=== PATIENT | female | born 1970 | race Caucasian/White ===

== ENCOUNTER → 2019-10-01 11:44 | Outpatient (CLI) | payer OTHER, SELFPAY ==
--- NOTE | ~2019-10-01 | MM_ITS ---
EXAMINATION: MM screening [facility] BI w bailee HISTORY: Screening mammogram TECHNIQUE: Craniocaudal and mediolateral oblique 3-D tomosynthesis images were obtained and synthetic 2-D images were generated. CAD analysis was submitted and interpreted. COMPARISON: 06/20/2018, 06/07/2017, 03/18/2009 BREAST PARENCHYMAL COMPOSITION: The breasts are heterogeneously dense, which may obscure small masses . FINDINGS: There is no evidence of suspicious mass, calcification, or architectural distortion to sugg est malignancy in either breast. There has been no suspicious interval change. IMPRESSION: 1. No mammographic evidence of malignancy. 2. Recommend routine screening mammography in one year. BI-RADS Category 1: Negative Reviewed, dictated and finalized at location A.
== END ==
PROVIDERS: Visit Provider Nurse Practitioner
DX: Z12.31 Encounter for screening mammogram for malignant neoplasm of breast (principal)
CPT/HCPCS: 77063; 77067

== ENCOUNTER 2020-06-20 14:47 | Emergency (ER) | payer OTHER, SELFPAY ==
--- NOTE | ~2020-06-20 | XR_ITS ---
EXAMINATION: XR chest 2V EXAM DATE: 06/20/2020 15:24 INDICATION: Left-sided chest pain. Dizziness. TECHNIQUE: Frontal and lateral projections of the chest obtained and reviewed. There is no prior francesco dy for comparison. FINDINGS: The lungs are clear. There are no pleural effusions. The cardiomediastinal silhouette is within normal limits. There is no pneumothorax suspected. The bones and soft tissues are unremarkab le. IMPRESSION: Normal chest x-ray exam. Reviewed, dictated and finalized at location A. IMPRESSION: Normal chest x-ray exam.
--- NOTE | 2020-06-20 14:53 | ED.CHESTPAIN ---
HPI - Chest Pain General Chief Complaint: Chest Pain Stated Complaint: chest pain Time Seen by Provider: 06/20/20 14:53 History of Present Illness HPI narrative: Intermittent left sided chest pain since this morning. Located under the left breast. No radiation. Associated with light headedness. No SOB, nausea, fever, cough. Related Data Home Medications Medication Instructions Recorded Confirmed ergocalciferol (vitamin D2) 06/20/20 levothyroxine 06/20/20 Allergies Allergy/AdvReac Type Severity Reaction Status Date / Time No Known Allergies Allergy Verified 06/20/20 15:05 Review of Systems Review of Systems: All systems reviewed & are unremarkable except as noted in HPI and below Constitutional: Constitutional: Reports no additional constitutional complaints Eyes: Eyes: Reports no additional eye complaints ENT: Reports system reviewed and no additional complaints, except as documented Cardiovascular: Cardiovascular: Reports chest pain Respiratory: Respiratory: Denies dyspnea Gastrointestinal: Gastrointestinal: Denies abdominal pain and Denies nausea Genitourinary: Genitourinary: Reports no additional female genitourinary complaints Musculoskeletal: Musculoskeletal: Reports no additional musculoskeletal complaints Neurologic: Reports system reviewed and no additional complaints, except as documented [facility] Past Medical History Medical History (Updated 06/20/20 @ 18:43 by Delgado Sharif MD) Hypothyroidism Social History Social History (Updated 06/20/20 @ 15:22 by Delgado Sharif MD) Smoking status: Never smoker Exam Const: General: healthy appearing, no acute distress and alert Orientation/consciousness: patient oriented x3 HENMT: Head: normal to inspection Neck: Neck: normal visual inspection Resp: Effort & Inspection: normal respiratory effort Auscultation: clear to auscultation bilaterally, no rales, no rhonchi and no wheezes Cardio: Jugular venous distension: no JVD Rate: regular rate Rhythm: regular rhythm Heart sounds: no murmurs GI: Inspection: non-distended GI Palp: Yes Soft to palpation and No Tenderness to palpation present (GI) Skin: General skin exam: normal color Neuro: General: patient oriented x3, moves all extremities, no focal motor deficits and CN's II-XI intact bilaterally Speech: normal speech Extrem: General: no edema Psych: Appearance: well kempt Affect: Anxious affect present Course Vital Signs Vital signs: Vital Signs Temperature 36.4 C L 06/20/20 14:58 Pulse Rate 80 06/20/20 14:58 Respiratory Rate 17 06/20/20 14:58 Blood Pressure 143/77 H 06/20/20 14:58 Pulse Oximetry 100 06/20/20 14:58 Temperature 36.6 C 06/20/20 16:54 Pulse Rate 80 06/20/20 16:54 Respiratory Rate 15 06/20/20 16:54 Blood Pressure 115/64 06/20/20 16:54 Pulse Oximetry 100 06/20/20 16:54 MDM - Chest Pain MDM Narrative Medical decision making narrative: She has sharp well localized pain that would be very atyical for anginal pain. She does have some minimal depressions on EKG. Troponin is negative x 2. Heart score is 3. Differential Diagnosis Differential diagnosis: Likely unstable angina pectoris and atypical chest pain Medical Records Data Attestation: I reviewed the patient's medical records. Lab Data Attestation: I reviewed the patient's lab results. Result diagrams: 06/20/20 15:17 06/20/20 15:17 Labs: Lab Results 06/20/20 06/20/20 06/20/20 Range/Units 15:17 15:17 15:17 WBC 5.2 (4.5-10.0) K/mm3 RBC 4.18 L (4.2-5.4) M/mm3 Hgb 12.6 (12.0-15.0) g/dL Hct 36.2 L (37.0-47.0) % MCV 86.6 (80-100) fl MCH 30.1 (26-34) pg MCHC 34.8 (32-36) g/dl RDW 12.4 (11.5-14.5) % Plt Count 162 (150-375) k/mm3 MPV 10.9 H (7.4-10.4) fl Immature Gran % (Auto) 0.2 (0-0.5) % Neut % (Auto) 78.8 H (45.5-73.1) % Lymph % (Auto) 14.8 L (18.3-44.2) %
--- NOTE | 2020-06-20 14:54 | ECG_ITS ---
Measurements Intervals Martin Rate: 86 P: 78 OH: 147 QRS: -20 QRSD: 102 T: 60 QT: 379 QTc: 454 Interpretive Statements SINUS RHYTHM INCOMPLETE RIGHT BUNDLE BRANCH BLOCK DELAYED PRECORDIAL R/S TRANSITION BORDERLINE ST ABNORMALITY- LATERAL LEADS BORDERLINE ECG Electronically Signed On 06-20-2020 15:20:37 CDT by Flaco Basilio D.O.
[2020-06-20 14:58] VITALS: BP 143/77; PULSE 80; RESP 17; TEMP 36.4; O2SAT 100
[2020-06-20 15:14] VITALS: PULSE 77
[2020-06-20 15:27] LABS: Basophils Percent Auto 0.4 % (0.2-1.2); Eosinophils Percent Auto 0.2 % (0-4.4); Hematocrit 36.2 % (37.0-47.0); Hemoglobin 12.6 g/dL (12.0-15.0); Immature Granulocyte Absolute 0.01 K/mm3 (0.00-0.031); Immature Granulocyte Percent A 0.2 % (0-0.5); Lymphocytes Absolute Auto 0.76 K/mm3 (0.9-3.2); Lymphocytes Percent Auto 14.8 % (18.3-44.2); Mean Corpuscular HGB Conc 34.8 g/dl (32-36); Mean Corpuscular Hemoglobin 30.1 pg (26-34); Mean Corpuscular Volume 86.6 fl (80-100); Mean Platelet Volume 10.9 fl (7.4-10.4); Monocytes Absolute Auto 0.3 K/mm3 (0.1-0.6); Monocytes Percent Auto 5.6 % (2.6-8.5); Neutrophils Absolute Auto 4.1 K/mm3 (1.3-6.7); Neutrophils Percent Auto 78.8 % (45.5-73.1); Platelet Count Result 162 k/mm3 (150-375); Red Blood Count 4.18 M/mm3 (4.2-5.4); Red Cell Distribution Width 12.4 % (11.5-14.5); White Blood Count 5.2 K/mm3 (4.5-10.0)
[2020-06-20 15:33] LABS: INR 0.9; Prothrombin Time 12.8 Seconds (11.1-14.7)
[2020-06-20 15:34] LABS: Partial Thromboplastin Time 35.9 SECONDS (22.3-36.8)
[2020-06-20 15:42] LABS: Anion Gap 5 mmol/L (8-16); Blood Urea Nitrogen 15 mg/dL (7-17); Calcium 9.7 mg/dL (8.4-10.2); Carbon Dioxide 30 mmol/L (22-30); Chloride 104 mmol/L (98-107); Estimated CRCL calculation 59 ml/min; Estimated Glomerular Filt Rate > 60; Glucose 123 mg/dL (65-105); Potassium 3.7 mmol/L (3.4-5.0); Sodium 139 mmol/L (137-145)
[2020-06-20 15:54] LABS: Troponin I < 0.012 ng/mL (0.000-0.034)
[2020-06-20] MEDS: ASPIRIN 81 MG CHEWABLE TABLET 324 MG PO (16:51)
[2020-06-20] MEDS: SODIUM CHLORIDE 0.9% IV 1,000 ML 999 ML IV CONT (16:51)
[2020-06-20 16:54] VITALS: BP 115/64; PULSE 80; RESP 15; TEMP 36.6; O2SAT 100
[2020-06-20 17:30] VITALS: BP 113/86; PULSE 88; RESP 15; O2SAT 100
[2020-06-20 18:31] LABS: Troponin I < 0.012 ng/mL (0.000-0.034)
[2020-06-20 18:38] VITALS: BP 113/72; BP 117/63; BP 121/86; PULSE 84; PULSE 85; PULSE 87; PULSE 89; RESP 18; TEMP 36.4; O2SAT 100
[2020-06-20] MEDS: MECLIZINE HCL 25 MG TABLET PO (19:26)
== END 2020-06-20 19:33 | disposition home or self-care (01) ==
PROVIDERS: Emergency Provider Emergency Medicine; PCP Family Medicine Adolescent Medicine
DX: R07.89 Other chest pain (principal); E03.9 Hypothyroidism, unspecified
CPT/HCPCS: 36415; 71046; 80048; 84484; 85025; 85610; 85730; 93005; 96360; 99284; A9270; J7030

== ENCOUNTER → 2020-11-19 12:29 | Outpatient (CLI) | payer OTHER, SELFPAY ==
--- NOTE | ~2020-11-19 | MM_ITS ---
EXAMINATION: MM screening [facility] BI w bailee HISTORY: Screening mammogram TECHNIQUE: Craniocaudal and mediolateral oblique 3-D tomosynthesis images were obtained and synthetic 2-D images were generated. CAD analysis was submitted and interpreted. COMPARISON: 10/01/2019, 06/20/2018, 06/07/2017 BREAST PARENCHYMAL COMPOSITION: The breasts are heterogeneously dense, which may obscure small masses . FINDINGS: There is no evidence of suspicious mass, calcification, or architectural distortion to sugg est malignancy in either breast. There has been no suspicious interval change. IMPRESSION: 1. No mammographic evidence of malignancy. 2. Recommend routine screening mammography in one year. BI-RADS Category 1: Negative Reviewed, dictated and finalized at location A.
--- NOTE | ~2020-11-19 | DEXA_ITS ---
Bone Density Report Name: Rita Marie Age: 50 Sex: Female Ethnicity: White Date of : 1970 Indication: postmenopausal; screening for osteoporosis; Referring Provider: Deanna, Vika Study: Bone densitometry was performed. Exam Date: November 19, 2020 Accession number: [id number] Bone Density: Region BMD T-score Z-score Classification AP Spine (L1-L4) 0.835 -1.9 -1.1 Osteopenia Femoral Neck (Left) 0.655 -1.7 -0.9 Osteopenia Total Hip (Left) 0.799 -1.2 -0.6 Osteopenia Femoral Neck (Right) 0.602 -2.2 -1.4 Osteopenia Total Hip (Right) 0.771 -1.4 -0.9 Osteopenia Total Hip Mean 0.785 -1.3 -0.8 Osteopenia World Health Organization criteria for BMD impression classify patients as: Normal (T-score at or above -1.0), Osteopenia (T-score between -1.0 and -2.5), or Osteoporosis (T-score at or below -2.5). 10-year Fracture Risk(1): Major Osteoporotic Fracture 5.5% Hip Fracture 0.9% Reported Risk Factors: [place] (), Neck BMD=0.602, BMI=18.1 (1) FRAX(R) Version 3.08. Fracture probability calculated for an untreated patient. Fracture probability may be lower if the patient has received treatment. Clinical Information Provided by Patient: Has used the following medications: Vitamin D, Levothyroxine Patient maximum height was 64.2 Menopause Age: 46 Does not regularly consume dairy products Onset of menses at age 12 Number of children 2 Impression: The patient has low bone mass, based on the Right Femoral Neck T-score. The patient has an estimated ten-year risk of hip fracture of 0.9% and an estimated ten-year risk of major fracture of 5.5%, based on the WHO FRAX algorithm. Discussion: BONE DENSITY IS LOW AT ONE OR MORE SKELETAL SITES. This patient's lowest T-score is low at one or more skeletal sites. It meets the World Health Organization's (WHO) criteria for ?low bone mass? (T-score between -1.0 and -2.5). The patient's 10-year risk of fracture as calculated by FRAX is less than the threshold where pharmacological therapy is recommended by the National Osteoporosis Foundation (NOF). However, all treatment decisions require clinical judgment and consideration of individual patient factors, including patient preferences, comorbidities, previous drug use, risk factors not captured in the FRAX model (e.g., frailty, falls, vitamin D deficiency, increased bone turnover, interval significant decline in bone density) and possible under or overestimation of fracture risk by FRAX. The patient should follow a healthful lifestyle (good nutrition with adequate calcium and vitamin D, and appropriate weight-bearing exercise). Follow-Up: Consider repeating this study in 2 to 3 years to reassess this patient's status, or sooner if there is some new clinical indication. Reported by: [facility] on 11/19/2020 1:1
== END ==
PROVIDERS: PCP Family Medicine Adolescent Medicine; Visit Provider Nurse Practitioner
DX: Z12.31 Encounter for screening mammogram for malignant neoplasm of breast (principal); Z13.820 Encounter for screening for osteoporosis; M85.88 Other specified disorders of bone density and structure, other site; M85.852 Other specified disorders of bone density and structure, left thigh; M85.851 Other specified disorders of bone density and structure, right thigh
CPT/HCPCS: 77063; 77067; 77080

== ENCOUNTER → 2021-11-22 11:00 | Outpatient (CLI) | payer OTHER, SELFPAY ==
--- NOTE | ~2021-11-22 | MM_ITS ---
EXAMINATION: MM screening [facility] BI w bailee HISTORY: Screening mammogram TECHNIQUE: Craniocaudal and mediolateral oblique 3-D tomosynthesis images were obtained and synthetic 2-D images were generated. CAD analysis was submitted and interpreted. COMPARISON: 11/19/2020, 10/01/2019, 06/20/2018 BREAST PARENCHYMAL COMPOSITION: The breasts are heterogeneously dense, which may obscure small masses . FINDINGS: There is no suspicious mass, calcification, or architectural distortion to suggest malignan cy in either breast. There has been no suspicious interval change. IMPRESSION: 1. No mammographic evidence of malignancy. 2. Recommend routine screening mammography in one year. BI-RADS Category 1: Negative Reviewed, dictated and finalized at location A.
== END ==
PROVIDERS: PCP Family Medicine Adolescent Medicine; Visit Provider Nurse Practitioner
DX: Z12.31 Encounter for screening mammogram for malignant neoplasm of breast (principal)
CPT/HCPCS: 77063; 77067

== ENCOUNTER 2022-08-02 00:55 | Day surgery (SDC) | payer OTHER, SELFPAY ==
[2022-07-20 13:46] VITALS: BMI 25.0
[2022-08-02 07:42] VITALS: BP 107/53; PULSE 83; RESP 18; TEMP 36.3; O2SAT 100
[2022-08-02] MEDS: LACTATED RINGERS 1,000 ML 150 ML IV CONT (07:51)
--- NOTE | 2022-08-02 08:45 | PM.HPGS ---
History of Present Illness History of Present Illness Consent: Risks, benefits, and alternatives have been discussed and questions answered. Patient agrees to proceed with procedure. Chief complaint: neoplasm screening Narrative: Rita Marie is a 51 year old female Presents for screening colonoscopy. Patient's current weight appetite bowel movements are normal. She denies abdominal pain. Patient has had no bleeding. Family history is noncontributory. Review of Systems Review of Systems: Review of systems noncontributory. [facility] Past Medical History Medical History Arnold-Chiari malformation, type I Hypothyroidism Osteopenia of multiple sites Family History Family History Grandparent Cerebrovascular accident Sibling Multiple sclerosis Social History Social History Smoking status: Former smoker Tobacco type: cigarettes Second hand tobacco smoke exposure: No Alcohol intake: never Substance use: never Substance use type: does not use Living arrangements: with family Occupation/Education: other Gender identity (if verbalized by the patient): Female Sexual Orientation (if Verbalized by the Patient): Straight or Heterosexual Spiritual care concerns: No Agree to blood products: Yes Meds Home Medications and Allergies Home Medications Medication Instructions Recorded Confirmed Type cholecalciferol (vitamin D3) 25 25 mcg PO DAILY 06/07/21 08/02/22 History mcg (1,000 unit) capsule levothyroxine 75 mcg tablet 75 mcg PO DAILY #90 tabs 06/20/22 08/02/22 Rx Allergies Allergy/AdvReac Type Severity Reaction Status Date / Time No Known Allergies Allergy Verified 08/02/22 07:40 Vital Signs Vital Signs - 24 hr 08/02/22 07:42 Temperature 97.3 F L Pulse Rate 83 Respiratory Rate 18 Blood Pressure 107/53 L Pulse Oximetry 100 Oxygen Delivery Room Air Exam Narrative: Physical exam reveals patient to be alert. Vital signs stable. HEENT exam is unremarkable. Patient is anicteric. Lungs are clear to auscultation and percussion. Heart is without murmur or extra sounds. Abdomen bowel sounds are present soft nontender with no hepatosplenomegaly. Digital external rectal exam is normal. Assessment and Plan Assessment and plan (1) Encounter for screening colonoscopy: Code(s): Z12.11 - Encounter for screening for malignant neoplasm of colon Status: Acute Assessment and Plan: Patient presents today for screening colonoscopy. She appears to be at average risk for colon polyps. Further recommendations may be given after endoscopy.
--- NOTE | 2022-08-02 08:58 | WPDANESEPPF ---
Anes - Initial Pre Proc Eval Procedure: Operation Date: 08/02/22 09:15 Proposed Procedures p Screening Colonoscopy - Lonnie Miranda MD Date/Time: 08/02/22 08:58 Surgeon: Lonnie Miranda MD Pre Op Diagnosis: neoplasm screening Patient Data Age: 51 Gender: F Height: 1.6 m Weight: 47 kg Last Vital Signs Temp 97.3 F L 08/02/22 07:42 Pulse 83 08/02/22 07:42 Resp 18 08/02/22 07:42 BP 107/53 L 08/02/22 07:42 Pulse Ox 100 08/02/22 07:42 O2 Del Method Room Air 08/02/22 07:42 Allergies Allergy/AdvReac Type Severity Reaction Status Date / Time No Known Allergies Allergy Verified 08/02/22 07:40 Home Medications Medication Instructions Recorded Confirmed Type cholecalciferol (vitamin D3) 25 25 mcg PO DAILY 06/07/21 08/02/22 History mcg (1,000 unit) capsule levothyroxine 75 mcg tablet 75 mcg PO DAILY #90 tabs 06/20/22 08/02/22 Rx Patient hx anesthesia problems: none Family hx anesthesia problems: none Results Review: All pre-operative results and documents have been reviewed as part of the pre-operative evaluation. [facility] Past Medical History Medical History Arnold-Chiari malformation, type I Hypothyroidism Osteopenia of multiple sites Family History Family History Grandparent Cerebrovascular accident Sibling Multiple sclerosis Social History Social History Smoking status: Former smoker Tobacco type: cigarettes Second hand tobacco smoke exposure: No Alcohol intake: never Substance use: never Substance use type: does not use Living arrangements: with family Occupation/Education: other Gender identity (if verbalized by the patient): Female Sexual Orientation (if Verbalized by the Patient): Straight or Heterosexual Spiritual care concerns: No Agree to blood products: Yes Anes - Eval Final PreProcedure Day of Procedure 08/02/22 08:58 Patient weight: normal Heart: regular rate and rhythm Lungs: clear to auscultation Airway: Mallampati scale class II Neurological: alert and oriented Last oral intake: >/= 8 hours ASA classification: II Emergent: no Anesthetic plan: proceed Anesthesia type and monitoring: general GIVS and standard monitoring Results Review: All pre-operative results and documents have been reviewed as part of the pre-operative evaluation. Informed Consent: The patient's anesthetic plan and its attendant risks and benefits were discussed with the patient/family/POA. Questions were solicited and answers provided to the satisfaction of the patient/family/POA.
[2022-08-02] MEDS: SIMETHICONE ORAL SUSPENSION 20 MG/0.3 ML 30 ML BOTTLE 0.6 ML IRRIGATION (09:26)
[2022-08-02 09:34] VITALS: BP 112/54; PULSE 95; RESP 18; O2SAT 99
[2022-08-02 09:44] VITALS: BP 109/55; PULSE 91; RESP 21; O2SAT 100
[2022-08-02 09:54] VITALS: BP 100/57; PULSE 84; RESP 16; O2SAT 100
== END 2022-08-02 10:07 | disposition home or self-care (01) ==
PROVIDERS: PCP Family Medicine Adolescent Medicine; Visit Provider Internal Medicine Gastroenterology
PROC: 0DJD8ZZ Inspection of Lower Intestinal Tract, Via Natural or Artificial Opening Endoscopic (ICD-10-PCS; CPT 45378; principal; 2022-08-02 09:15)
DX: Z12.11 Encounter for screening for malignant neoplasm of colon (principal); K64.8 Other hemorrhoids; E03.9 Hypothyroidism, unspecified; G93.5 Compression of brain; M85.89 Other specified disorders of bone density and structure, multiple sites; Z87.891 Personal history of nicotine dependence
CPT/HCPCS: 45378; J2704; J7120

== ENCOUNTER → 2022-11-23 10:23 | Outpatient (CLI) | payer OTHER, SELFPAY ==
--- NOTE | ~2022-11-23 | DEXA_ITS ---
Bone Density Report Name: JU ZAVALA Age: 52 Sex: Female Ethnicity: White Date of : 1970 Indication: osteopenia; postmenopausal Referring Provider: Deanna, Vika Study: Bone densitometry was performed. Exam Date: November 23, 2022 Accession number: [id number] Bone Density: Region BMD T-score Z-score Classification AP Spine (L1-L4) 0.800 -2.2 -1.2 Osteopenia Femoral Neck (Left) 0.649 -1.8 -0.8 Osteopenia Total Hip (Left) 0.790 -1.2 -0.6 Osteopenia Femoral Neck (Right) 0.592 -2.3 -1.3 Osteopenia Total Hip (Right) 0.753 -1.5 -0.9 Osteopenia Total Hip Mean 0.772 -1.4 -0.8 Osteopenia World Health Organization criteria for BMD impression classify patients as: Normal (T-score at or above -1.0), Osteopenia (T-score between -1.0 and -2.5), or Osteoporosis (T-score at or below -2.5). 10-year Fracture Risk(1): Major Osteoporotic Fracture 6.6% Hip Fracture 1.1% Reported Risk Factors: [place] (), Neck BMD=0.592, BMI=17.7 (1) FRAX(R) Version 3.08. Fracture probability calculated for an untreated patient. Fracture probability may be lower if the patient has received treatment. Previous Exams: Region Exam Age BMD T-score BMD Change BMD Change Date g/cm2 vs Baseline vs Previous AP Spine(L1-L4) 11/23/2022 52 0.800 -2.2 -0.035* -0.035* 11/19/2020 50 0.835 -1.9 Total Hip(Left) 11/23/2022 52 0.790 -1.2 -0.009 -0.009 11/19/2020 50 0.799 -1.2 Total Hip(Right) 11/23/2022 52 0.753 -1.5 -0.018 -0.018 11/19/2020 50 0.771 -1.4 *Denotes significance at 95% confidence level, LSC for AP Spine = 0.022 g/cm2, LSC for Total Hip = 0.027 g/cm2 Clinical Information Provided by Patient: Patient maximum height was 64.2 Menopause Age: 46 Does not regularly consume dairy products Onset of menses at age 12 Number of children 2 Impression: The patient has low bone mass, based on the Right Femoral Neck T-score. The patient has an estimated ten-year risk of hip fracture of 1.1% and an estimated ten-year risk of major fracture of 6.6%, based on the WHO FRAX algorithm. The BMD for the AP Spine(L1-L4) decreased, changing by -0.035 since the last DXA exam. Discussion: BONE DENSITY IS LOW AT ONE OR MORE SKELETAL SITES. This patient's lowest T-score is low at one or more skeletal sites. It meets the World Health Organization's (WHO) criteria for ?low bone mass? (T-score between -1.0 and
--- NOTE | ~2022-11-23 | MM_ITS ---
EXAMINATION: MM screening [facility] BI w bailee HISTORY: Screening mammogram TECHNIQUE: Craniocaudal and mediolateral oblique 3-D tomosynthesis images were obtained and synthetic 2-D images were generated. CAD analysis was submitted and interpreted. COMPARISON: 11/22/2021, 11/19/2020, 10/01/2019 BREAST PARENCHYMAL COMPOSITION: The breasts are heterogeneously dense, which may obscure small masses . FINDINGS: No suspicious mass, calcification, or architectural distortion are identified in either viral ast to suggest malignancy. There has been no suspicious interval change. IMPRESSION: 1. No mammographic evidence of malignancy. 2. Recommend routine screening mammography in one year. BI-RADS Category 1: Negative Reviewed, dictated and finalized at location A.
== END ==
PROVIDERS: PCP Family Medicine Adolescent Medicine; Visit Provider Nurse Practitioner
DX: Z12.31 Encounter for screening mammogram for malignant neoplasm of breast (principal); M85.88 Other specified disorders of bone density and structure, other site; M85.852 Other specified disorders of bone density and structure, left thigh; M85.851 Other specified disorders of bone density and structure, right thigh
CPT/HCPCS: 77063; 77067; 77080

== ENCOUNTER 2023-07-13 10:20 | Outpatient (CLI) | payer OTHER, SELFPAY ==
--- NOTE | ~2023-07-13 | MR_ITS ---
MRI of the brain Clinical History: Headache Technique: Axial and sagittal T1-weighted images were acquired. These were followed by axial T2-weigh jared, diffusion weighted, gradient, and FLAIR images. Findings: No abnormal signal seen in the brain parenchyma. No acute infarct, intracranial hemorrhage, or mass lesion identified. Ventricles and subarachnoid spaces are unremarkable. Orbits are unremarkable. Paranasal sinuses and m astoid air cells are clear. Major intracranial flow voids are intact. Sagittal midline structures are intact. IMPRESSION: Unremarkable exam. Reviewed, dictated and finalized at location M. IMPRESSION: Unremarkable exam.
== END 2023-07-13 10:21 ==
PROVIDERS: PCP Family Medicine Adolescent Medicine; Visit Provider Family Medicine Adolescent Medicine
DX: R42 Dizziness and giddiness (principal); R51.9 Headache, unspecified
CPT/HCPCS: 70551

== ENCOUNTER 2023-11-29 10:16 | Outpatient (CLI) | payer OTHER, SELFPAY ==
--- NOTE | ~2023-11-29 | MM_ITS ---
EXAMINATION: MM screening [facility] BI w bailee HISTORY: Screening TECHNIQUE: Craniocaudal and mediolateral oblique 3-D tomosynthesis images were obtained and synthetic 2-D images were generated. CAD analysis was submitted and interpreted. COMPARISON: Comparison to multiple prior studies sequentially, with oldest reviewed study dated 06/07. BREAST PARENCHYMAL COMPOSITION: Dense: The breasts are heterogeneously dense, which may obscure small masses FINDINGS: There is no evidence of suspicious mass, calcification, or architectural distortion to sugg est malignancy in either breast. There has been no suspicious interval change. IMPRESSION: 1. No mammographic evidence of malignancy. 2. Recommend routine screening mammography in one year. BI-RADS Category 1: Negative Reviewed, dictated and finalized at location B.
== END 2023-11-29 10:17 | disposition home or self-care (01) ==
LOC: MICIMG 10:18
PROVIDERS: PCP Family Medicine Adolescent Medicine; Visit Provider Nurse Practitioner
DX: Z12.31 Encounter for screening mammogram for malignant neoplasm of breast (principal)
CPT/HCPCS: 77063; 77067

== ENCOUNTER 2024-03-18 09:59 | Emergency (ER) | payer OTHER, SELFPAY ==
--- NOTE | ~2024-03-18 | CT_ITS ---
EXAMINATION: CTA brain carotid DATE: 03/18/2024 11:04 INDICATION: Migraine headache. TECHNIQUE: Computed tomographic angiography (CTA) of the head was performed without and with 100 mL O mnipaque-350 intravenous contrast. CTA of the neck was performed with intravenous contrast. Automated exposure control and iterative reconstruction technique were employed. The dose-length product was 1 443.42 mGy-cm. Maximum intensity projection and volume rendered 3D-reconstructions were created by elisabet waddell technologist on a separate workstation. COMPARISON: CTA 07/17/2016, brain MRI 07/13/2023 FINDINGS: HEAD CTA: The cerebellar tonsils extend 12 mm inferior to foramen magnum, consistent with Chiari I mi ld formation. There is no intracranial hemorrhage, acute infarction, or abnormal intracranial mass le lashaun. The ventricles are normal in size. The paranasal sinuses are clear. The mastoid air cells are n ormal. The orbits are normal. Left vertebral artery is dominant. There is no significant stenosis of basilar artery or the posterior cerebral arteries. There is no significant stenosis of the intracrani al internal carotid arteries or anterior or middle cerebral arteries. Anterior communicating artery i s normal. The posterior communicating arteries are normal. There is no aneurysm. NECK CTA: There is mild scarring at the lung apices. There are no pathologically enlarged lymph nodes . There is no significant stenosis of the vertebral arteries. There is no visible plaque in the proxi mal internal carotid arteries. There is 0% stenosis of the proximal right internal carotid artery rel ative to normal distal artery lumen diameter (NASCET criteria). There is 0% stenosis of the proximal left internal carotid artery relative to normal distal artery lumen diameter. There is mild cervical spondylosis. IMPRESSION: 1. Chiari I malformation. 2. No aneurysm or significant intracranial arterial stenosis. 3. 0% stenosis of the proximal internal carotid arteries relative to normal distal artery lumen diame ters (NASCET criteria). Reviewed, dictated and finalized at location A. GREASER IMPRESSION: 1. Chiari I malformation. 2. No aneurysm or significant intracranial arterial stenosis. 3. 0% stenosis of the proximal internal carotid arteries relative to normal dis juarez artery lumen diameters (NASCET criteria).
[2024-03-18 10:03] VITALS: BP 128/78; PULSE 100; RESP 16; TEMP 36.5; O2SAT 100
--- NOTE | 2024-03-18 10:26 | ED.HA ---
HPI - Headache General Chief Complaint: Headache Stated Complaint: migraine Time Seen by Provider: 03/18/24 10:07 History of Present Illness HPI Narrative: 53-year-old female with a past medical history significant for intractable migraines, versus tibia enteritis, vertigo. Patient presents to the emergency room with a chief complaint of a migraine headache and vertiginous symptoms that are persistent despite her therapies at home including sumatriptan and Nurtec. She sees an outpatient neurologist and a neurosurgeon for her previous care M1 malformation. She has been on multiple medications for her migraines including amitriptyline, gabapentin, metoprolol and now including sumatriptan Nurtec which are not causing any relief. She states doing that causes relief is traction during PT therapy for her Chiari which alleviate her headaches. She has tried contacting her neurosurgeon for evaluation and potential interventions but has not made those appointments yet. She denies any vision changes, nausea, vomiting, chest pain, difficulty breathing. Was otherwise in her normal state of health. Headache ongoing for 2 days now and refractory to her current therapies. Patient sees Dr. Diaz for Neurology. Related Data Home Medications ?Medication ?Instructions ?Recorded ?Confirmed ?Last Taken ?Type vitamin B12 1,000 mcg-folic acid tablet sublingual 07/04/23 02/13/24 Unknown History 400 mcg sublingual tablet magnesium chelate, mal, threon mg PO 02/13/24 02/13/24 Unknown History 66.7 mg capsule magnesium gluconate 27 mg 27 mg PO ONCE 02/13/24 02/13/24 Unknown History magnesium (500 mg) tablet zinc acetate 25 mg (zinc) capsule 25 mg PO DAILY 02/13/24 02/13/24 Unknown History Allergies Allergy/AdvReac Type Severity Reaction Status Date / Time No Known Allergies Allergy Verified 03/18/24 10:08 Review of Systems Review of Systems: As reviewed above in HPI PMFSH Past Medical History Medical History Osteopenia of multiple sites Arnold-Chiari malformation, type I Hypothyroidism Family History Family History Grandparent Cerebrovascular accident Sibling Multiple sclerosis Father Cancer Grandparent Cancer Grandparent Cancer Social History Social History Smoking status: Former smoker Tobacco type: cigarettes Second hand tobacco smoke exposure: No Alcohol intake: never Substance use: never Substance use type: does not use Do You Feel Safe in your Home?: Yes Lack of Transportation: No Lack of Food: Never True Current Housing: I Have Housing Concerned About Future Housing: No Difficulty Paying Gas/Electric Bills: No Difficulty Paying for Meds: No Currently Unemployed: No Education: High School Diploma/GED Difficulty w/ Childcare or Family Care: No Living arrangements: with family Occupation/Education: other Gender identity (if verbalized by the patient): Female Sexual Orientation (if Verbalized by the Patient): Straight or Heterosexual Spiritual care concerns: No Agree to blood products: Yes Exam Narrative: GENERAL: [Well-appearing, well-nourished, and in no acute distress.] HEAD: [Normocephalic, atraumatic.] EYES: [PERRLA and EOMI.] ENT: Nares clear, no rhinorrhea or epistaxis. Mucous membranes moist. NECK: Supple. CHEST: [Clear to auscultation. No respiratory distress.] HEART: [Regular rate and rhythm]. No murmur heard. [Normal peripheral pulses.] ABDOMEN: [Soft, nondistended], [nontender], [No rigidity or guarding] EXTREMITIES: Normal range of motion. [No edema.] SKIN: Warm, dry, no rash. NEURO: [No focal deficits]. Alert and oriented [x3.] PSYCH: [Normal mood and affect.] Course Vital Signs Vital signs: Vital Signs Temperature 36.5 C 03/18/24 10:03 Pulse Rate 100 03/18/24 10:03 Respiratory Rate 16 03/18/24 10:03 Blood Pressure 128/78 03/18/24 10:03 Pulse Oximetry 100 03/18/24 10:03 Oxygen Delivery Room Air 03/18/24 10:03 Temperature 36.7 C 03/18/24 13:01 Pulse Rate 99 03/18/24 13:01 Respiratory Rate 20 03/18/24 13:01 Blood Pressure 149/68 H 03/18/24 13:01 Pulse Oximetry 99 03/18/24 13:01 Oxygen Delivery Room Air 03/18/24 10:03 MDM - Headache MDM Narrative Medical decision making narrative: 53-year-old female presenting for persistent migraine in vertiginous symptoms. She usually has relief of her migraine headaches with sumatriptan or Nurtec but presently having persistent symptoms despite her medications. No nausea vomiting, no vision changes, no neurological deficits clinically. Normal reassuring vital signs without any abnormalities such as hypertension, tachycardia, fever, hypoxia. She otherwise is well appearing not any acute distress. She states she has had previous MRI imaging for her Chiari but not been able follow-up with her neurosurgeon as her Chiari was enlarging over the past scans. Present concern based on patient's exam and persistent migraine headache and vertiginous symptoms despite usual therapies is that she could be having vertebral basilar insufficiency or central cause to her headache and vertigo. CT angiography was ordered this time and into laboratory studies such as CBC, CMP. She was treated with a migraine cocktail including diphenhydramine, Decadron, Compazine, Benadryl, normal saline bolus. Magnesium also given and she was re-evaluated frequently. Workup shows no leukocytosis or anemia. Normal reassuring electrolytes, unremarkable renal and hepatic function panel. CT angiography shows no stenosis, aneurysms or any occluded vessels. Care malformation is again redemonstrated which patient is well aware of. Patient was re-evaluated had complete symptomatic resolution of her headache. At this time she is stable for discharge home with regular primary care provider follow-up and specialty follow-up with Neurology and Neurosurgery. We did refer her to our neurosurgeon for 2nd opinion about her chiari malformation as she is not able to get in touch with her present doctor. Medical Records Attestation: I reviewed the patient's medical records. Lab Data Attestation: I reviewed the patient's lab results. 03/18/24 10:49 03/18/24 10:59 Labs: Lab Results 03/18/24 03/18/24 Range/Units 10:49 10:59 WBC 4.1 L (4.5-10.0) K/mm3 RBC 4.61 (4.2-5.4) M/mm3 Hgb 13.7 (12.0-15.0) g/dL Hct 40.0 (37.0-47.0) % MCV 86.8 (80-100) fl MCH 29.7 (26-34) pg MCHC 34.3 (32-36) g/dl RDW 12.7 (11.5-14.5) % Plt Count 165 (150-375) k/mm3 MPV 10.5 H (7.4-10.4) fl Immature Gran % (Auto) 0.2 (0-0.5) % Neut % (Auto) 76.7 H (45.5-73.1) % Lymph % (Auto) 17.4 L (18.3-44.2) % Canyon % (Auto) 4.8 (2.6-8.5) % Eos % (Auto) 0.2 (0-4.4) % Baso % (Auto) 0.7 (0.2-1.2) % Lymph # (Auto) 0.72 L (0.9-3.2) K/mm3 Canyon # (Auto) 0.2 (0.1-0.6) K/mm3 Eos # (Auto) 0.0 (0-0.3) K/mm3 Baso # (Auto) 0.0 (0.0-0.1) K/mm3 Abs Immat Gran (auto) 0.01 (0.00-0.031) K/mm3 Absolute Neuts (auto) 3.2 (1.3-6.7) K/mm3 Absolute Nucleated RBC 0.000 (0.0-0.012) K/mm3 Nucleated RBC % 0.0 (0.0-0.2) % PT 13.8 (11.1-14.7) Seconds INR 1.0 APTT 40.1 H (22.3-36.8) Seconds Sodium 134 L (137-145) mmol/L Potassium 4.1 (3.4-5.0) mmol/L Chloride 106 (98-107) mmol/L Carbon Dioxide 24 (22-30) mmol/L Anion Gap 4 (4-12) mmol/L BUN 13 (7-17) mg/dL Creatinine 0.80 0.90 (0.7-1.0) mg/dL Estim Creat Clear Calc 52 47 ml/min Estimated GFR > 60 > 60 (59 - ) Glucose 104 (65-110) mg/dL Calcium 9.3 (8.4-10.2) mg/dL Total Bilirubin 0.7 (0.2-1.3) mg/dL AST 25 (14-36) U/L ALT 16 (6-35) U/L Alkaline Phosphatase 53 (38-126) U/L Total Protein 7.0 (6.3-8.2) g/dL Albumin 4.5 (3.5-5.1) g/dL Imaging Data Attestation: I personally reviewed and interpreted this imaging study as follows: My impression: Impressions Head/Neck CTA 03/18/24 11:07 IMPRESSION: 1. Chiari I malformation. 2. No aneurysm or significant intracranial arterial stenosis. 3. 0% stenosis of the proximal internal carotid arteries relative to normal distal artery lumen diameters (NASCET criteria). Discharge Plan Discharge Clinical Impression: Migraine, Vertigo, Arnold-Chiari malformation, type I Patient Disposition: Home, Self-Care Condition: Stable Instructions: Antibiotic Form, Migraine Headache (ED), Dizziness (ED), Chiari Malformation (DC) Additional Instructions: Follow-up with your regular primary care provider and specialists we will refer you to our neurosurgery team for evaluation as a 2nd opinion for your Chiari malformation. Return with any new or worsening concerns at any time. Patient Language: Citizen Of [place] Prescriptions: No Action vitamin L93-flrxt acid 1,000-400 mcg tablet, sublingual sublingual metoprolol succinate 25 mg tablet extended release 24 hr 25 mg PO DAILY Qty: 30 3RF Rx Instructions: take 1 tablet q.h.s. zinc acetate 25 mg (zinc) capsule 25 mg PO DAILY magnesium gluconate 27 mg magnesium (500 mg) tablet 27 mg PO ONCE magnesium chelate, mal, threon 66.7 mg capsule PO Nurtec ODT 75 mg tablet,disintegrating 75 mg PO .every other day Qty: 16 5RF Rx Instructions: as a single dose diazepam 2 mg tablet 2 mg PO TID PRN (Reason: vertigo) Qty: 30 1RF cholecalciferol (vitamin D3) 1,250 mcg (50,000 unit) capsule 1,250 mcg PO WEEKLY Qty: 13 3RF levothyroxine 75 mcg tablet 75 mcg PO DAILY Qty: 90 3RF sumatriptan succinate 50 mg tablet See Rx Instructions PO .COMPLEX Qty: 14 0RF Rx Instructions: take 1 tab at onset of headache; if no relief may repeat 1 tab after at least 2 hrs; max = 4 tabs/24 hr PO Follow-up/Referrals: Cady Templeton MD [Physician] - 1 Week (Chiari malformation, chronic headaches) Desomnd Gonsales MD [Primary Care Provider] - Time of Disposition: 14:15
[2024-03-18] MEDS: PROCHLORPERAZINE EDISYLATE 10 MG/2 ML VIAL IV PUSH (10:42)
[2024-03-18] MEDS: diphenhydrAMINE HCl INJ 50 MG/ML VIAL 25 MG IV PUSH (10:42)
[2024-03-18] MEDS: dexAMETHasone SOD PHOS INJ 10 MG/ML 1 ML VIAL IV PUSH (10:42)
[2024-03-18] MEDS: SODIUM CHLORIDE 0.9% IV 1,000 ML 999 ML IV CONT (10:42)
[2024-03-18] MEDS: MAGNESIUM SULF 2 GM/WATER 50ML 2 GM/50 ML BAG IVPB (10:42)
[2024-03-18 10:56] LABS: Basophils Percent Auto 0.7 % (0.2-1.2); Eosinophils Percent Auto 0.2 % (0-4.4); Hemoglobin 13.7 g/dL (12.0-15.0); Immature Granulocyte Absolute 0.01 K/mm3 (0.00-0.031); Immature Granulocyte Percent A 0.2 % (0-0.5); Lymphocytes Absolute Auto 0.72 K/mm3 (0.9-3.2); Lymphocytes Percent Auto 17.4 % (18.3-44.2); Mean Corpuscular HGB Conc 34.3 g/dl (32-36); Mean Corpuscular Hemoglobin 29.7 pg (26-34); Mean Corpuscular Volume 86.8 fl (80-100); Mean Platelet Volume 10.5 fl (7.4-10.4); Monocytes Absolute Auto 0.2 K/mm3 (0.1-0.6); Monocytes Percent Auto 4.8 % (2.6-8.5); Neutrophils Absolute Auto 3.2 K/mm3 (1.3-6.7); Neutrophils Percent Auto 76.7 % (45.5-73.1); Platelet Count Result 165 k/mm3 (150-375); Red Blood Count 4.61 M/mm3 (4.2-5.4); Red Cell Distribution Width 12.7 % (11.5-14.5); White Blood Count 4.1 K/mm3 (4.5-10.0)
[2024-03-18 11:06] LABS: Estimated CRCL calculation 47 ml/min; Estimated Glomerular Filt Rate > 60
[2024-03-18 11:11] LABS: Alanine Aminotransferase 16 U/L (6-35); Albumin Level 4.5 g/dL (3.5-5.1); Alkaline Phosphatase 53 U/L (38-126); Anion Gap 4 mmol/L (4-12); Aspartate Amino Transferase 25 U/L (14-36); Bilirubin,Total 0.7 mg/dL (0.2-1.3); Blood Urea Nitrogen 13 mg/dL (7-17); Calcium 9.3 mg/dL (8.4-10.2); Carbon Dioxide 24 mmol/L (22-30); Chloride 106 mmol/L (98-107); Estimated CRCL calculation 52 ml/min; Estimated Glomerular Filt Rate > 60; Glucose 104 mg/dL (65-110); Potassium 4.1 mmol/L (3.4-5.0); Prothrombin Time 13.8 Seconds (11.1-14.7); Sodium 134 mmol/L (137-145)
[2024-03-18 11:12] LABS: Partial Thromboplastin Time 40.1 Seconds (22.3-36.8)
[2024-03-18 11:54] VITALS: BP 133/67; PULSE 95; RESP 16; TEMP 36.5; O2SAT 100
[2024-03-18 13:01] VITALS: BP 149/68; PULSE 99; RESP 20; TEMP 36.7; O2SAT 99
== END 2024-03-18 14:57 | disposition home or self-care (01) ==
PROVIDERS: Emergency Provider Student in an Organized Health Care Education/Training Program; PCP Family Medicine Adolescent Medicine
DX: G43.909 Migraine, unspecified, not intractable, without status migrainosus (principal); R42 Dizziness and giddiness; G93.5 Compression of brain; E03.9 Hypothyroidism, unspecified; Z87.891 Personal history of nicotine dependence; Z79.899 Other long term (current) drug therapy
CPT/HCPCS: 36415; 70496; 70498; 80053; 85025; 85610; 85730; 96365; 96366; 96375; 99284; J0780; J1100; J1200; J3475; J7030; Q9967

== ENCOUNTER 2024-06-17 15:59 | Outpatient (CLI) | payer OTHER, SELFPAY ==
--- NOTE | ~2024-06-17 | US_ITS ---
EXAMINATION: US thyroid DATE: 06/17/2024 16:34 INDICATION: Hypothyroidism TECHNIQUE: Multiple ultrasound images of the thyroid were obtained. COMPARISON: None. FINDINGS: The right thyroid lobe measures 4.1 x 1.1 x 1.1 cm. The left thyroid lobe measures 3.4 x 0.8 x 1.2 c m. There is heterogeneous decreased echogenicity with coarsened echotexture and mild increased vascul ar flow throughout the thyroid which can be seen in the setting of thyroiditis. No discrete nodules i dentified. IMPRESSION: 1. Homogeneous decreased echogenicity with coarsened echotexture and increased vascular flow througho ut the thyroid which can be seen as sequela of thyroiditis. No discrete thyroid nodules. Reviewed, dictated and finalized at location B. IMPRESSION: 1. Homogeneous decreased echogenicity with coarsened echotexture and increased vascular flow throughout the thyroid which can be seen as sequela of thyroiditi s. No discrete thyroid nodules.
--- OUTSIDE RECORDS SUMMARY | 2024-06-17 18:21 | XMS_ITS | Referral Summary ---
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 Name Role Phone Desmond Gonsales MD Primary Care Prov ider Social History Tobacco Use Types Packs/Day Years Used Date Smoking Tobacco: Never Comments Unknown Sex and Gender Information Value Date Recorded Sex Assigned at Not on file Legal Sex Female 8:13 AM CDT Gender Identity Not on file Sexual Orientation Not on file Last Filed Vital Signs Vital Sign Reading Time Taken Comments Blood Pressure 118/60 05/17/2017 2:33 PM LATEXER Pulse 64 05/17/2017 2:33 PM LATEXER Temperature - - Respiratory Rate - - Oxygen Saturation - - Inhaled Oxygen Concentration - - Weight 49.2 kg (108 lb 6.4 oz) 05/17/2017 2:33 P M LATEXER Height 162.6 cm (5' 4 ) 05/17/2017 2:33 PM LATEXER Body Mass Index 18.61 05/17/2017 2:33 PM LATEXER Plan of Treatment Not on file Insurance [employer]WNYA BROOKS HMO/POS Care Teams Fabricator Industrial Furnace Relationship Specialty Start Date End Date Desmond Gonsales MD [address] [place] [address] PCP - General 03/25/17
--- OUTSIDE RECORDS SUMMARY | 2024-06-17 18:21 | XMS_ITS | Clinical Summary ---
Author Organization [facility] [place] [address] Address [address] [place] [address] Care Team Providers Care Adhesive Bandage Making Operator Name Role Phone Desmond Gonslaes MD Primary Care Prov ider Family History Medical History Relation Name Comments Diabetes Father Family history of diabetes mellitus - (Added by Conv) Multiple sclerosis Sister Family hi story of multiple sclerosis - (Added by TW Conv) Relation Name Status Comments Father Sister Social History Tobacco Use Types Packs/Day Years Used Date Smoking Tobacco: Never Comments Unknown Sex and Gender Information Value Date Recorded Sex Assigned at Not on file Legal Sex Female 8:13 AM CDT Gender Identity Not on file Sexual Orientation Not on file Obstetrics History Last Filed Vital Signs Vital Sign Reading Time Taken Comments Blood Pressure 118/60 05/17/2017 2:33 PM ELECTRIC REFRIGERATOR PREPARER Pulse 64 05/17/2017 2:33 PM ELECTRIC REFRIGERATOR PREPARER Temperature - - Respiratory Rate - - Oxygen Saturation - - Inhaled Oxygen Concentration - - Weight 49.2 kg (108 lb 6.4 oz) 05/17/2017 2:33 P M ELECTRIC REFRIGERATOR PREPARER Height 162.6 cm (5' 4 ) 05/17/2017 2:33 PM ELECTRIC REFRIGERATOR PREPARER Body Mass Index 18.61 05/17/2017 2:33 PM ELECTRIC REFRIGERATOR PREPARER Plan of Treatment Not on file Insurance AEMUNIR BROOKS HMO/POS Care Teams Adhesive Bandage Making Operator Relationship Specialty Start Date End Date Desmond Gonsales MD [address] [place] [address] PCP - General 03/25/17
== END 2024-06-17 16:00 | disposition home or self-care (01) ==
PROVIDERS: PCP Family Medicine Adolescent Medicine; Visit Provider Internal Medicine Endocrinology, Diabetes & Metabolism
DX: E03.9 Hypothyroidism, unspecified (principal)
CPT/HCPCS: 76536

== ENCOUNTER 2024-12-02 10:22 | Outpatient (CLI) | payer OTHER, SELFPAY ==
--- NOTE | ~2024-12-02 | MM_ITS ---
EXAMINATION: screening [facility] BI w bailee INDICATION: Asymptomatic, referred for screening mammogram COMPARISON: 11/29/2023 through 10/01/2019 TECHNIQUE: Digital Breast Tomosynthesis CC, MLO views of Both breasts were obtained with computer-aided detection to assist in interpretation of the study. FINDINGS: The breasts are heterogeneously dense, which may obscure small masses. There is an asymmetry seen on the cc view in the inner right breast at middle third. Elsewhere, there are no mammographic features of malignancy. IMPRESSION: 1. Right breast Asymmetry. 2. No evidence of malignancy in the Left breast. RECOMMENDATION: Right breast Diagnostic mammogram with true lateral, appropriate spot compression views and an ultrasound if needed. BI-RADS Category 0: Incomplete: Needs additional imaging evaluation. Reviewed, dictated and finalized at location B. IMPRESSION: 1. Right breast Asymmetry. 2. No evidence of malignancy in the Left breast. RECOMMENDATION: Right breast Diagnostic mammogram with true lateral, appropriate spot compressi on views and an ultrasound if needed. BI-RADS Category 0: Incomplete: Needs additional imaging evaluation.
--- NOTE | ~2024-12-02 | DEXA_ITS ---
Bone Density Report Name: JU ZAVALA Age: 54 Sex: Female Ethnicity: White Date of : 1970 Indication: osteopenia; Referring Provider: Deanna, Vika Study: Bone densitometry was performed. Exam Date: December 02, 2024 Accession number: [id number] Bone Density: Region BMD T-score Z-score Classification AP Spine(L1-L4) 0.830 -2.0 -0.8 Osteopenia Femoral Neck (Left) 0.624 -2.0 -0.9 Osteopenia Total Hip (Left) 0.772 -1.4 -0.7 Osteopenia Femoral Neck (Right) 0.556 -2.6 -1.5 Osteoporosis Total Hip (Right) 0.725 -1.8 -1.0 Osteopenia Total Hip Mean 0.748 -1.6 -0.9 Osteopenia World Health Organization criteria for BMD impression classify patients as: Normal (T-score at or above -1.0), Osteopenia (T-score between -1.0 and -2.5), or Osteoporosis (T-score at or below -2.5). 10-year Fracture Risk: FRAX not reported because: Some T-score for Spine Total or Hip Total or Femoral Neck at or below -2.5 Previous Exams: -- Region Exam Age BMD T-score BMD Change BMD Change Date g/cm2 vs Baseline vs Previous -- AP Spine (L1-L4) 12/02/2024 54 0.830 -2.0 -0.6% 3.7%* 11/23/2022 52 0.800 -2.2 -4.2%* -4.2%* 11/19/2020 50 0.835 -1.9 Total Hip(Left) 12/02/2024 54 0.772 -1.4 -3.4%* -2.3% 11/23/2022 52 0.790 -1.2 -1.2% -1.2% 11/19/2020 50 0.799 -1.2 Total Hip(Right) 12/02/2024 54 0.725 -1.8 -6.0%* -3.7%* 11/23/2022 52 0.753 -1.5 -2.4% -2.4% 11/19/2020 50 0.771 -1.4 -- *Denotes significance at 95% confidence level, LSC for AP Spine = 0.022 g/cm2, LSC for Total Hip = 0.027 g/cm2 Clinical Information Provided by Patient: Has used the following medications: Reclast (i.e. zoledronate), Vitamin D Has the following medical conditions: Hypothyroidism w/Hishimoto Patient maximum height was 64 Menopause Age: 46 Onset of menses at age 12 Number of children 2 Impression: The patient has osteoporosis, based on the Right Femoral Neck T-score. The BMD for the Total Hip(Right) decreased, changing by -3.7% since the last DXA exam. Discussion: INCREASED RISK OF FRACTURE. BONE DENSITY IS UNDESIRABLY LOW AT ONE OR MORE SKELETAL SITES, CONSISTENT WITH POSTMENOPAUSAL OSTEOPOROSIS. This patient's lowest T-score meets the World Health Organization's (WHO) criteria for osteoporosis at one or more sites (T-score -2.5 or below). In untreated patients, the risk of osteoporotic fracture increases approximately two-fold for each 1.0 SD decrease in T-score. Low bone density is not the only risk factor for fracture; also consider factors such as patient's age, frailty or poor health, risk of falling, risk of injury, previous osteoporotic fracture, family history of osteoporosis, cigarette smoking, low body weight, etc. Not everyone with low bone mineral density has osteoporosis; osteomalacia and other metabolic bone disorders should also be considered. Patients who have osteoporosis should be evaluated for specific diseases and conditions (secondary causes) that may cause or contribute to bone loss. The [place] Association of Clinical Endocrinologists (AACE) and National Osteoporosis Foundation (NOF) recommend pharmacologic intervention for all postmenopausal women whose T-score is in this range. The patient should follow a healthful lifestyle (good nutrition with adequate calcium and vitamin D, and appropriate weight-bearing exercise). Follow-Up: Consider a repeat BMD and Vertebral Fracture Assessment (VFA) exam in 2 years or sooner if medically necessary, to reassess this patient's status. Reported by: JAKY on 12/02/2024 11:38:00 AM. Reviewed, dictated and finalized at location A.
== END 2024-12-02 10:23 | disposition home or self-care (01) ==
LOC: MICIMG 10:23
PROVIDERS: PCP Family Medicine Adolescent Medicine; Visit Provider Nurse Practitioner
DX: Z12.31 Encounter for screening mammogram for malignant neoplasm of breast (principal); M85.88 Other specified disorders of bone density and structure, other site; R92.8 Other abnormal and inconclusive findings on diagnostic imaging of breast
CPT/HCPCS: 77063; 77067; 77080

== ENCOUNTER 2025-01-02 08:53 | Outpatient (CLI) | payer OTHER, SELFPAY ==
--- NOTE | ~2025-01-02 | MMUS_ITS ---
EXAMINATION: MM diagnostic rohini RT w bailee, US breast RT limited INDICATION: 54-year old female; BI-RADS 0, callback to evaluate Right breast asymmetry. COMPARISON: 12/02/2024 TECHNIQUE: Digital breast tomosynthesis True lateral and spot compression CC views of the RIGHT breast were obtained with computer-aided detection to assist in interpretation of the study. Focused right breast ultrasound was completed. FINDINGS: There are scattered areas of fibroglandular density. The asymmetry of concern in the Medial at anterior depth in the right breast persists on spot compression views. Ultrasound was performed for further evaluation. RIGHT BREAST ULTRASOUND FINDINGS: Targeted evaluation of the medial right breast was completed. There is a 0.4 x 0.2 x 0.2 cm hypoechoic mass at 3:00 location 2 cm from the nipple in the RIGHT breast that correlate to the mammography finding. IMPRESSION: Probable Benign RIGHT breast mass. Short-term follow-up recommended. RECOMMENDATION: 6 month follow-up diagnostic RIGHT mammogram and RIGHT breast ultrasound. BI-RADS 3, PROBABLY BENIGN Reviewed, dictated and finalized at location C. IMPRESSION: Probable Benign RIGHT breast mass. Short-term follow-up recommended. RECOMMENDATION: 6 month follow-up diagnostic RIGHT mammogram and RIGHT breast ultrasound. BI-RADS 3, PROBABLY BENIGN
== END 2025-01-02 08:54 | disposition home or self-care (01) ==
LOC: MICIMG 08:53
PROVIDERS: PCP Family Medicine Adolescent Medicine; Visit Provider Obstetrics & Gynecology Gynecology
DX: R92.8 Other abnormal and inconclusive findings on diagnostic imaging of breast (principal); N63.15 Unspecified lump in the right breast, overlapping quadrants
CPT/HCPCS: 76642; 77061; 77065; G0279